=== PATIENT | female | born 1995 | race Caucasian/White ===

== ENCOUNTER 2021-01-22 06:39 | Emergency (ER) | payer MEDICAID ==
[~2021-01-22] VITALS: Ht 162.6 cm; Wt 53.0 kg
[2021-01-22] MEDS ORDERED: PREDNISONE 20MG TABLET PO ONE (07:30)
[2021-01-22] MEDS ORDERED: P50 MT (07:59)
[2021-01-22 08:08] VITALS: BP 106/87
== END 2021-01-22 08:09 | disposition home or self-care (01) ==
LOC: ER 06:39
DX: T78.40XA Allergy, unspecified, initial encounter (principal); E05.90 Thyrotoxicosis, unspecified without thyrotoxic crisis or storm; X58.XXXA Exposure to other specified factors, initial encounter
CPT/HCPCS: 81025; 99283; J7512